=== PATIENT | female | born 1990 | race Asian ===

== ENCOUNTER 2024-07-19 02:40 | Emergency (ER) | payer MEDICAID ==
[~2024-07-19] VITALS: Ht 167.6 cm; Wt 74.0 kg
[2024-07-19 03:02] VITALS: O2SAT 99
[2024-07-19 04:19] LABS: BASOPHILS % 0.4 % (0.0-2.0); DIFFERENTIAL COMMENT 0; EOSINOPHILS % 2.4 % (0.0-5.0); HEMATOCRIT. 38.4 % (36.0-48.0); HEMOGLOBIN. 12.7 g/dL (12.0-16.0); LYMPHOCYTES % 16.9 % (20.0-50.0); MEAN CORPUSCULAR HEMOGLOBIN 25.5 pg (28.0-32.0); MEAN CORPUSCULAR VOLUME 77.4 fL (81.0-99.0); MEAN PLATELET VOLUME 7.7 fl (7.4-10.4); MONOCYTES % 4.8 % (2.0-8.0); NEUTROPHILS % 75.5 % (40.0-76.0); PLATELET 431 x1000/uL (130-400); RED BLOOD CELL COUNT 4.97 mill/uL (4.2-5.4); RED CELL DISTRIBUTION WIDTH 14.2 % (11.6-14.6); WHITE BLOOD COUNT 11.6 x1000/uL (4.5-11.0)
[2024-07-19 04:26] LABS: CHLORIDE 107 mEq/L (98-107); POTASSIUM 4.2 mEq/L (3.5-5.1); SODIUM 139 mEq/L (136-145)
[2024-07-19 04:27] LABS: CARBON DIOXIDE 24 mEq/L (21-32)
[2024-07-19 04:32] LABS: CREATININE 0.7 mg/dL (0.6-1.0); GLUCOSE 122 mg/dL (70-105); UREA NITROGEN BLOOD 8 mg/dL (9-23)
[2024-07-19 04:34] LABS: ALANINE AMINOTRANSFERASE 26 IU/L (10-49); ALBUMIN 4.7 g/dL (3.2-4.8); ASPARTATE AMINOTRANSFERASE 14 IU/L (<34)
[2024-07-19 04:35] LABS: BILIRUBIN TOTAL 0.4 mg/dL (0.1-1.0); PROTEIN TOTAL 7.8 g/dL (6.0-8.3)
[2024-07-19 04:40] LABS: CLARITY URINE CLEAR (CLEAR); COLOR URINE YELLOW (YELLOW); GLUCOSE URINE NEGATIVE (NEGATIVE); KETONES URINE NEGATIVE (NEGATIVE); LEUKOCYTE ESTERASE URINE NEGATIVE (NEGATIVE); NITRITE URINE NEGATIVE (NEGATIVE); OCCULT BLOOD URINE NEGATIVE (NEGATIVE); PROTEIN URINE NEGATIVE (NEGATIVE); SPECIFIC GRAVITY URINE 1.021 (1.005-1.030); UROBILINOGEN URINE 0.2 E.U./dL (0.2-1.0)
[2024-07-19] MEDS: ACETAMINOPHEN 325MG TABLET PO ONE (05:08)
[2024-07-19] MEDS: ONDANSETRON 4MG ODT PO ONE (05:08)
[2024-07-19 05:17] LABS: BILIRUBIN DIRECT < 0.1 mg/dL (<=3.0)
[2024-07-19] MEDS ORDERED: AZITHROMYCIN 500MG/250ML 250 ML IV SCH (06:15)
[2024-07-19] MEDS: SODIUM CHLORIDE 0.9% 1,000 ML IV ONE (08:30)
[2024-07-19] MEDS: CEFTRIAXONE 1GM/50ML 50 ML IV ONE (08:30)
[2024-07-19] MEDS: MORPHINE SULFATE 4 MG/ML INJ (FOR IV/IM USE) IV NR (08:30)
[2024-07-19] MEDS: ONDANSETRON HCL 4MG/2ML INJ IV NR (08:30)
[2024-07-19 09:56] VITALS: BP 126/75; PULSE 80; RESP 20; TEMP 36.6; O2SAT 100
== END 2024-07-19 09:55 | disposition short-term general hospital (02) ==
LOC: ER 02:40
DX: K80.00 Calculus of gallbladder with acute cholecystitis without obstruction (principal); F12.10 Cannabis abuse, uncomplicated; Z98.890 Other specified postprocedural states
CPT/HCPCS: 99285; 96365; 76705; 96375; 80076; 80048; 81003; 83690; 85025; 36415; Q0162; J0696; J2405; J2270; J7030